=== PATIENT | male | born 1980 ===

== ENCOUNTER 2017-01-28 09:37 | Emergency (ER) | payer OTHER ==
[2017-01-28 09:49] VITALS: RESP 16; TEMP 98.2; O2SAT 100
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
[2017-01-28 11:47] VITALS: BP 156/92; PULSE 80
== END 2017-01-28 11:46 | disposition home or self-care (01) ==
LOC: C.ER 09:37
DX: S13.4XXA Sprain of ligaments of cervical spine, initial encounter (principal); V49.50XA Passenger injured in collision with unspecified motor vehicles in traffic accident, initial encounter; M62.838 Other muscle spasm

== ENCOUNTER 2018-05-08 03:19 | Emergency (ER) | payer OTHER ==
[2018-05-08] MEDS ORDERED: Tetanus/Diphtheria Toxoids 0.5 ml Syringe IM ONE ×2 (03:53→04:34)
--- NOTE | 2018-05-08 03:53 | C.PDOC ---
History Of Present Illness 37 year old male presents to the ER with right elbow pain after he tripped and fell at home injuring the elbow on a metal table and sustained a laceration. Denies weakness, numbnesss, head injury, or LOC. Time Seen by Provider: 05/08/18 03:43 Chief Complaint (Nursing): Upper Extremity Problem/Injury History Per: Patient History/Exam Limitations: no limitations Onset/Duration Of Symptoms: Hrs Current Symptoms Are (Timing): Still Present Recent travel outside of the [place]: No Past Medical History Reviewed: Historical Data, Nursing Documentation, Vital Signs Vital Signs: Last Vital Signs Temp 99.4 F 05/08/18 03:32 Pulse 90 05/08/18 03:32 Resp 14 05/08/18 03:32 BP 139/91 H 05/08/18 03:32 Pulse Ox 98 05/08/18 03:32 - Medical History PMH: Diabetes, HTN, Sleep Apnea Family History: States: Unknown Family Hx - Social History Hx Tobacco Use: No Hx Alcohol Use: No Hx Substance Use: No - Immunization History Hx Tetanus Toxoid Vaccination: No Hx Influenza Vaccination: No Hx Pneumococcal Vaccination: No Review Of Systems Musculoskeletal: Positive for: Other (Right elbow pain) Skin: Positive for: Other (Laceration) Neurological: Negative for: Weakness, Numbness, Other (LOC) Physical Exam - Physical Exam Appears: Non-toxic Skin: Warm, Dry Head: Atraumatic, Normacephalic Eye(s): bilateral: Normal Inspection Extremity: Normal ROM (of right elbow), Capillary Refill (<2 seconds), No Deformity, Other (Hematoma inferior to right olecranon with 3cm laceration) Pulses: Left Radial: Normal, Right Radial: Normal Neurological/Psych: Oriented x3, Normal Speech, Normal Motor, Normal Sensation ED Course And Treatment O2 Sat by Pulse Oximetry: 98 (Room air) Pulse Ox Interpretation: Normal - Other Rad Right elbow x-ray X-Ray: Interpreted by Me, Viewed By Me Interpretation: No acute fracture or dislocation Progress Note: Right elbow x-ray ordered, results were negative. Right elbow hematoma evacuated, patient tolerated laceration repair without any difficulty, remains neurovasc intact. will discharge home with proper wound care instructions and advised to follow up for suture removal. Laceration - Laceration Repair Right elbow Wound Length (In cm): 3 Description Of Wound: Linear Wound Cleansed With: Sterile Saline Anesthesia: Lidocaine 1%, With Epi Wound Examination: Irrigated With Saline, No FB With Wound Exploration, No Tendon Injury With Wound Exploration Wound Debridement/Revision: Wound Debrided (hematoma evacuated) Wound Closure: Suture (Five) Suture Technique And Material Used: Nylon (3-0) Wound Complexity: Simple (Pt tolerated procedure well) Disposition Counseled Patient/Family Regarding: Diagnosis, Need For Followup, Rx Given - Disposition Referrals: [facility] [Outside] Disposition: HOME/ ROUTINE Disposition Time: 03:52 Condition: STABLE Additional Instructions: Apply ICE to area for swelling Follow up in clinic in 2 days for wound care Suture removal in 10 days Return to ER if severe pain, numbness, moderate swelling or worse Instructions: Laceration Repair With Stitches (DC) Forms: [employer] (Colombian) Print Language: CHINESE - Clinical Impression Clinical Impression: Laceration of elbow, right, Traumatic hematoma of right elbow - PA / [employer] SAL[employer] AGENT / Resident Statement MD/DO has reviewed & agrees with the documentation as recorded. - Scribe Statement The provider has reviewed the documentation as recorded by the Scribbethanie Lucia All medical record entries made by the Willamibbethanie were at my direction and personally dictated by me. I have reviewed the chart and agree that the record accurately reflects my personal performance of the history, physical exam, medical decision making, and the department course for this patient. I have also personally directed, reviewed, and agree with the discharge instructions and disposition.
[2018-05-08] MEDS ORDERED: Lidocaine 2% w Epi 1:100,000 Inj IJ ONE ×3 (04:53→05:14)
[2018-05-08] MEDS ORDERED: Bacitracin 500 Units/gm Oint Foilpak UD ONE (05:29)
[2018-05-08] MEDS ORDERED: Bacitracin 500 Units/gm Oint Foilpak UD TOP ONE (05:30)
[2018-05-08 06:13] VITALS: BP 141/98; PULSE 86; RESP 18; TEMP 98.7; O2SAT 96
--- NOTE | 2018-05-08 11:42 | RAD ---
Date of service: 05/08/2018 PROCEDURE: Radiographs of the right elbow. HISTORY: pain, laceration, fall COMPARISON: No prior. FINDINGS: BONES: Bone alignment and mineralization are normal. There is no acute displaced fracture or bone destruction. JOINTS: Normal. SOFT TISSUES: Normal. JOINT EFFUSION: None. OTHER FINDINGS: None. IMPRESSION: No acute fracture or dislocation.
== END 2018-05-08 06:13 | disposition home or self-care (01) ==
LOC: C.ER 03:19
DX: S51.011A Laceration without foreign body of right elbow, initial encounter (principal); W01.0XXA Fall on same level from slipping, tripping and stumbling without subsequent striking against object, initial encounter; Y92.009 Unspecified place in unspecified non-institutional (private) residence as the place of occurrence of the external cause; Z23 Encounter for immunization

== ENCOUNTER 2018-05-22 09:58 | Emergency (ER) | payer OTHER ==
--- NOTE | 2018-05-22 10:06 | C.PDOC ---
History Of Present Illness 37 y/o male pt presents to the ER for a suture removal on the right elbow. Pt had a laceration and suture placed x1 days ago. Pt denies fever, chills, headache, discharge on wound, numbness, tingle sensation and pain to the area. Time Seen by Provider: 05/22/18 10:01 Chief Complaint (Nursing): Suture/Staple Removal History Per: Patient History/Exam Limitations: no limitations Onset/Duration Of Symptoms: Days Ago (x10), Laceration Current Symptoms Are (Timing): Better Location Of Injury: Right: Elbow Quality Of Symptoms: denies: Painful, Itching, Swollen, Draining Recent travel outside of the [place]: No Past Medical History Reviewed: Historical Data, Nursing Documentation, Vital Signs - Medical History PMH: Diabetes, HTN, Sleep Apnea Surgical History: No Surg Hx Family History: States: Unknown Family Hx - Social History Hx Tobacco Use: No Hx Alcohol Use: No Hx Substance Use: No - Immunization History Hx Tetanus Toxoid Vaccination: No Hx Influenza Vaccination: No Hx Pneumococcal Vaccination: No Review Of Systems Except As Marked, All Systems Reviewed And Found Negative. Constitutional: Negative for: Fever, Chills Skin: Positive for: Other (suture removal on left elbow; no drainage ) Neurological: Negative for: Numbness, Headache, Other (tingling sensation ) Physical Exam - Physical Exam Appears: Non-toxic, No Acute Distress Skin: Warm, Dry Head: Normacephalic Extremity: Normal ROM (x4), No Tenderness, Capillary Refill (<2 sec), No Deformity, No Swelling, Other (intact suture, no signs of infection ) Pulses: Left Radial: Normal Neurological/Psych: Oriented x3, Normal Speech Medical Decision Making Medical Decision Making: Plans: -- suture removal Disposition - Disposition Instructions: Stitches Removal Forms: Gen Discharge Inst Nauruan, [employer] [facility] (Irish) - Clinical Impression Clinical Impression: Removal of suture - Scribe Statement The provider has reviewed the documentation as recorded by the Willamibbethanie Hand Do Provider Attestation: All medical record entries made by the Scribe were at my direction and personally dictated by me. I have reviewed the chart and agree that the record accurately reflects my personal performance of the history, physical exam, medical decision making, and the department course for this patient. I have also personally directed, reviewed, and agree with the discharge instructions and disposition.
--- NOTE | 2018-05-22 10:10 | C.PDOC ---
History Of Present Illness 37 y/o male pt presents to the ER for a suture removal on the right elbow. Pt had a laceration and suture placed x1 days ago. Pt denies fever, chills, headache, discharge on wound, numbness, tingle sensation and pain to the area. Time Seen by Provider: 05/22/18 10:01 Chief Complaint (Nursing): Suture/Staple Removal History Per: Patient History/Exam Limitations: no limitations Onset/Duration Of Symptoms: Days Ago (x10), Laceration Current Symptoms Are (Timing): Better Location Of Injury: Right: Elbow Quality Of Symptoms: denies: Painful, Itching, Swollen, Draining Recent travel outside of the [place]: No Past Medical History Reviewed: Historical Data, Nursing Documentation, Vital Signs - Medical History PMH: Diabetes, HTN, Sleep Apnea Surgical History: No Surg Hx Family History: States: Unknown Family Hx - Social History Hx Tobacco Use: No Hx Alcohol Use: No Hx Substance Use: No - Immunization History Hx Tetanus Toxoid Vaccination: No Hx Influenza Vaccination: No Hx Pneumococcal Vaccination: No Review Of Systems Except As Marked, All Systems Reviewed And Found Negative. Constitutional: Negative for: Fever, Chills Skin: Positive for: Other (suture removal on right elbow; no drainage) Neurological: Negative for: Numbness, Headache, Other (tingling sensation; pain to area) Physical Exam - Physical Exam Appears: Non-toxic, No Acute Distress Skin: Warm, Dry, No Rash Head: Normacephalic Eye(s): bilateral: Normal Inspection, EOMI Oral Mucosa: Moist Throat: Normal Neck: Normal ROM, Supple Chest: Symmetrical Cardiovascular: Rhythm Regular Respiratory: Normal Breath Sounds Gastrointestinal/Abdominal: Soft, No Tenderness Extremity: Normal ROM (x4), Capillary Refill (<2 sec), No Deformity, No Swelling, Other (intact suture, no infection ) Pulses: Right Radial: Normal Neurological/Psych: Oriented x3, Normal Speech, Normal Motor, Normal Sensation Medical Decision Making Medical Decision Making: Plans: -- suture removal Disposition Doctor Will See Patient In The: ED Counseled Patient/Family Regarding: Diagnosis - Disposition Disposition: HOME/ ROUTINE Disposition Time: 10:06 Condition: STABLE Instructions: Stitches Removal Forms: Gen Discharge Inst Eritrean, [employer] (Comoran) - POA Present On Arrival: None - Clinical Impression Clinical Impression: Removal of suture - Scribe Statement The provider has reviewed the documentation as recorded by the Willamibbethanie Hand Do Provider Attestation: All medical record entries made by the Scribe were at my direction and personally dictated by me. I have reviewed the chart and agree that the record accurately reflects my personal performance of the history, physical exam, medical decision making, and the department course for this patient. I have also personally directed, reviewed, and agree with the discharge instructions and disposition.
[2018-05-22 10:11] VITALS: BP 159/105; PULSE 85; RESP 18; TEMP 98.6; O2SAT 98
== END 2018-05-22 10:21 | disposition home or self-care (01) ==
LOC: C.ER 09:58
DX: Z48.02 Encounter for removal of sutures (principal)